=== PATIENT | female | born 1960 | race Caucasian/White ===

== ENCOUNTER 2018-07-31 23:46 | Emergency (ER) | payer MEDICAID ==
[~2018-07-31] VITALS: Ht 157.5 cm; Wt 92.7 kg
[2018-07-31 23:56] VITALS: BP 116/65; Ht 157.5 cm; Wt 92.7 kg
[2018-08-01 00:36] LABS: BASOPHILS 0.3 % (0-2); EOSINOPHILS 0.8 % (0-7); HEMATOCRIT 41.8 % (36.0-48.0); HEMOGLOBIN 14.4 g/dL (12-16); IMMATURE GRANULOCYTES 0.2 % (0-5); LYMPHOCYTES 31.3 % (15-50); MCH 32.8 pg (26.0-34.0); MCHC 34.4 g/dL (31.0-37.0); MCV 95.2 fL (80.0-100.0); MEAN PLATELET VOLUME 9.8 fL (7.4-10.4); MONOCYTES 4.9 % (2-11); NEUTROPHILS 62.5 % (40-80); PLATELET COUNT 270 10x3/uL (130-400); RBC 4.39 10x6/uL (4.00-5.40); RDW 13.3 % (11.5-14.5); WBC 10.8 10x3/uL (4.8-10.8)
[2018-08-01 01:08] LABS: ALBUMIN 3.7 g/dL (3.4-5.0); ANION GAP 14.1 mmol/L (8-16); BILIRUBIN - TOTAL 0.37 mg/dL (0.2-1.3); CALCIUM 9.1 mg/dL (8.5-10.1); CARBON DIOXIDE 29.5 mmol/L (21.0-32.0); PROTEIN - SERUM 7.9 g/dL (6.4-8.2); THYROID STIMULATING HORMONE 7.78 uIU/mL (0.36-3.74)
[2018-08-01 01:09] LABS: POTASSIUM - SERUM 2.6 mmol/L (3.5-5.1)
[2018-08-01 03:17] LABS: APPEARANCE HAZY (CLEAR); COLOR YELLOW (YELLOW)
[2018-08-01 03:18] LABS: BACTERIA MANY /hpf (NONE SEEN); BILIRUBIN NEGATIVE (NEGATIVE); EPITHELIAL CELLS 0-5 /hpf (0-5); GLUCOSE NEGATIVE (NEGATIVE); KETONE NEGATIVE (NEGATIVE); NITRITE POSITIVE (NEGATIVE); PROTEIN NEGATIVE (NEGATIVE); RED CELLS - URINE NONE SEEN /hpf (0-5); UROBILINOGEN NORMAL (NORMAL)
[2018-08-01 03:20] LABS: UDS - AMPHET NEGATIVE QUAL (NEGATIVE); UDS - BARB NEGATIVE QUAL (NEGATIVE); UDS - BENZO POSITIVE QUAL (NEGATIVE); UDS - COCAINE NEGATIVE QUAL (NEGATIVE); UDS - OPIATE POSITIVE QUAL (NEGATIVE); UDS - PCP NEGATIVE QUAL (NEGATIVE); UDS - THC NEGATIVE QUAL (NEGATIVE)
[2018-08-01] MEDS ORDERED: MACROBID100 MG PO (04:06)
== END 2018-08-01 05:00 | disposition home or self-care (01) ==
LOC: D.ER 23:46
PROVIDERS: Emergency Medicine
DX: R45.851 Suicidal ideations (principal); F41.9 Anxiety disorder, unspecified; E87.6 Hypokalemia; N39.0 Urinary tract infection, site not specified; G40.909 Epilepsy, unspecified, not intractable, without status epilepticus; E11.9 Type 2 diabetes mellitus without complications; E03.9 Hypothyroidism, unspecified; J44.9 Chronic obstructive pulmonary disease, unspecified; F17.200 Nicotine dependence, unspecified, uncomplicated

== ENCOUNTER 2019-09-04 21:27 | Inpatient (IN) | payer MEDICAID ==
[~2019-09-04] VITALS: Ht 157.5 cm; Wt 84.6 kg
[~2019-09-04 21:27] MED LIST: MACROBID100 MG PO
[2019-09-04] MEDS ORDERED: BACLOFEN20 M1 PO (21:32)
[2019-09-04] MEDS ORDERED: ZOCOR40 MG PO (21:32)
[2019-09-04] MEDS ORDERED: ZOLOFT100 MG PO (21:33)
[2019-09-04] MEDS ORDERED: GLUCOPHAGE500 MG (21:33)
[2019-09-04] MEDS ORDERED: SYNTHROID100 MCG PO (21:34)
[2019-09-04] MEDS ORDERED: NEURONTIN600 MG PO (21:34)
[2019-09-04] MEDS ORDERED: DIFLUCAN100 MG PO (21:35)
[2019-09-04] MEDS ORDERED: DULERA 100 MCG8.8 GM INH (21:35)
[2019-09-04] MEDS ORDERED: KLONOPIN1 MG PO (21:35)
[2019-09-04 21:51] LABS: BASOPHILS 0.1 % (0-2); EOSINOPHILS 1.1 % (0-7); HEMATOCRIT 43.3 % (36.0-48.0); HEMOGLOBIN 14.3 g/dL (12-16); IMMATURE GRANULOCYTES 0.1 % (0-5); LYMPHOCYTES 39.7 % (15-50); MCH 33.7 pg (26.0-34.0); MCV 102.1 fL (80.0-100.0); MEAN PLATELET VOLUME 9.3 fL (7.4-10.4); RBC 4.24 10x6/uL (4.00-5.40); RDW 14.3 % (11.5-14.5); WBC 7.2 10x3/uL (4.8-10.8)
[2019-09-04 21:55] LABS: PLATELET COUNT 188 10x3/uL (130-400)
[2019-09-04 21:57] LABS: APTT 29.5 SECONDS (22.8-39.4); INR 1.05 (0.85-1.17); PROTIME 13.7 SECONDS (11.6-15.0)
[2019-09-04 21:58] LABS: CALC OSMOLALITY 287 mosm/kg (275-300); CALCIUM 8.6 mg/dL (8.5-10.1); CARBON DIOXIDE 35.2 mmol/L (21.0-32.0); CHLORIDE - SERUM 106 mmol/L (98-107); CREATININE - SERUM 1.2 mg/dL (0.6-1.3); GLUCOSE 86 mg/dL (74-106); POTASSIUM - SERUM 3.2 mmol/L (3.5-5.1); SODIUM 146 mmol/L (136-145); UREA NITROGEN 8 mg/dL (7-18); eGFR NON AFRICAN AMERICAN 49 mL/min (90-120)
[2019-09-04 22:16] LABS: ALBUMIN 3.6 g/dL (3.4-5.0); ALKALINE PHOSPHATASE 127 U/L (30-120); ALT (SGPT) 28 U/L (10-68); CKMB 2.8 U/L (0.0-3.6); CREATINE KINASE 495 UL (21-215); PRO BNP 103 pg/mL (0-125); PROTEIN - SERUM 7.6 g/dL (6.4-8.2); TROPONIN-I < 0.017 ng/mL (0.000-0.060)
[2019-09-04] MEDS ORDERED: HYDROCODON-ACE1 EA10 PO (23:47)
[2019-09-04] MEDS ORDERED: COMBIVENT RESPIM4 GM INH (23:50)
[2019-09-04] MEDS ORDERED: SUDOGEST30 MG PO (23:54)
[2019-09-04] MEDS ORDERED: SINGULAIR10 MG PO (23:59)
[2019-09-05] VITALS (7 sets, daily range): BP systolic 99–124; BP diastolic 45–75; Ht 157.5 cm; Wt 84.6 kg
[2019-09-05] MEDS ORDERED: ANEFRIN15 ML NS (00:03)
--- NOTE | 2019-09-05 02:14 | NUR ---
ADMINISTERED HS MEDICATIONS. DENIES FURTHER NEEDS AT THIS TIME. DROPLET PRECAUTIONS REMAIN IN PLACE. CALL LIGHT CLOSE. CPOC.
[2019-09-05 03:16] LABS: APPEARANCE HAZY (CLEAR); BILIRUBIN NEGATIVE (NEGATIVE); COLOR YELLOW (YELLOW); GLUCOSE NEGATIVE (NEGATIVE); KETONE SMALL mg/dL (NEGATIVE); NITRITE POSITIVE (NEGATIVE); PROTEIN NEGATIVE (NEGATIVE); UROBILINOGEN NORMAL (NORMAL)
[2019-09-05 03:18] LABS: BACTERIA MANY /hpf (NEGATIVE); EPITHELIAL CELLS NSEEN /hpf (0-5); RED CELLS - URINE 0-5 /hpf (0-5); WHITE CELLS - URINE 0-5 /hpf (NEGATIVE)
[2019-09-05 06:06] LABS: BASOPHILS 0.1 % (0-2); EOSINOPHILS 0.9 % (0-7); HEMATOCRIT 35.6 % (36.0-48.0); HEMOGLOBIN 11.6 g/dL (12-16); IMMATURE GRANULOCYTES 0.1 % (0-5); LYMPHOCYTES 40.4 % (15-50); MCH 33.2 pg (26.0-34.0); MCHC 32.6 g/dL (31.0-37.0); MEAN PLATELET VOLUME 9.6 fL (7.4-10.4); MONOCYTES 4.4 % (2-11); NEUTROPHILS 54.1 % (40-80); PLATELET COUNT 180 10x3/uL (130-400); RBC 3.49 10x6/uL (4.00-5.40); RDW 14.5 % (11.5-14.5); WBC 7.8 10x3/uL (4.8-10.8)
[2019-09-05 06:41] LABS: ANION GAP 10.6 mmol/L (8-16); CALCIUM 7.7 mg/dL (8.5-10.1); CARBON DIOXIDE 29.3 mmol/L (21.0-32.0); MAGNESIUM - SERUM 1.9 mg/dL (1.8-2.4); PHOSPHOROUS 3.1 mg/dL (2.5-4.9)
[2019-09-05 06:49] LABS: POTASSIUM - SERUM 2.9 mmol/L (3.5-5.1)
--- NOTE | 2019-09-05 07:53 | NUR ---
PT IS RESTING IN BED WITH EYES OPEN. RESPIRATIONS ARE EVEN AND UNLABORED. PT IS AAO X 4. PT STATES THAT SHE WOULD BATHE IN ALCOHOL AND SOAKS SOCKS IN ALCOHOL AND PUT THEM ON WET DUE TO "I HAVE THIS ISSUE WITH BUGS". DROPLET PRECAUTIONS IN PLACE. PUREWICK IN PLACE. PT REPORTS THAT SHE IS INCONTINENT OF BOWEL AND BLADDER. SCDS ARE ON BLE. O2 VIA NC @ 2L. PT REPORTS THAT SHE DOES WEAR O2 AT HOME. BED IS IN THE LOWEST POSITION. CALL LIGHT AND BEDSIDE TABLE ARE WITHIN REACH. SIDE RAILS X 2. FAMILY AT BEDSIDE. PT DENIES FURTHER NEEDS. WILL CONT TO MONITOR.
--- NOTE | 2019-09-05 08:13 | NUR ---
resived patient from er . Alert and orented able to voice needs and wants to staff. Daughter with her. She staed that she is whellchair bound at home.incont of bowel and blader. uses pullups. Daughter stated that pt. bathes in alchol to the point that she will wet her scoks and ring them out and place them on her feet wet. Bouth she and pt. stated she even put it on her pullup before she puts it on. skin in dry with some scally areas between legs and 4 small open marnie on her buttom right side. no dranage noted. but some yellow covering some of the open areas. pt stated that she put alcohol all over her body. Educated pt that that was not good for her skin and being a diabetic it is very important to keep her skin healthy. She stated that she hadnot had a shower in the shower in a [facility]. Offered a shower , refused she and her daughted, stated that the daughter feliciano do it in am. skin is over all clean looking with skin noted to be like you rubed your hand on it and some skin came off. Stated she did have home health but they don't come any more becouse of her dogs (they have 3 pit bulls). Patient stated that her husben is sick that he has early alzheimers. ua collected via in and out cath per protocol, Respiatory culture collected, Influeza A&B swab collected and sent to lab. Positive forInflueza A, placed on droplet isolatin per protocol. a
--- NOTE | 2019-09-05 13:38 | NUR ---
MED REC COMPLETED. JUVENCIO HERNÁNDEZ PAGED TO NOTIFY PER ORDER.
--- NOTE | 2019-09-05 19:00 | NUR ---
BEDSIDE REPORT RECEIVED. PATIENT RESTING WITH EYES CLOSED. UNLABORED RESPIRATIONS AND O2 @ 2 L. NO DISTRESS NOTED AT THIS TIME. CPOC.
[2019-09-06] VITALS: BP 99/50
--- NOTE | 2019-09-06 03:23 | NUR ---
I have reviewed this patient and I concur with the Shift Assessment completed by the Licensed Practical Nurse today this shift.
[2019-09-06 04:00] VITALS: BP 121/61
[2019-09-06 05:48] LABS: BASOPHILS 0.2 % (0-2); EOSINOPHILS 1.8 % (0-7); HEMATOCRIT 33.4 % (36.0-48.0); HEMOGLOBIN 10.8 g/dL (12-16); IMMATURE GRANULOCYTES 0.3 % (0-5); LYMPHOCYTES 40.1 % (15-50); MCH 33.6 pg (26.0-34.0); MCHC 32.3 g/dL (31.0-37.0); MEAN PLATELET VOLUME 9.2 fL (7.4-10.4); MONOCYTES 4.5 % (2-11); NEUTROPHILS 53.1 % (40-80); PLATELET COUNT 175 10x3/uL (130-400); RBC 3.21 10x6/uL (4.00-5.40); WBC 6.1 10x3/uL (4.8-10.8)
[2019-09-06 06:08] LABS: ANION GAP 9.6 mmol/L (8-16); CALCIUM 7.8 mg/dL (8.5-10.1); CARBON DIOXIDE 28.9 mmol/L (21.0-32.0); MAGNESIUM - SERUM 2.2 mg/dL (1.8-2.4); PHOSPHOROUS 3.6 mg/dL (2.5-4.9); POTASSIUM - SERUM 3.5 mmol/L (3.5-5.1)
--- NOTE | 2019-09-06 07:10 | NUR ---
PT RESTING IN BED. NO SIGNS OF DISTRESS. IV LEFT FORARM PATENT NO REDNESS OR TENDERNESS. ON TELEMETRY 77 SR. FALL PRECAUTIONS IN PLACE. DENIES ANY FURTHER NEED AT THIS TIME. CALL LIGHT IN REACH. BED LOW POSITION. NO FAMILY AT BEDSIDE.
[2019-09-06 08:55] VITALS: BP 119/71
--- NOTE | 2019-09-06 13:52 | NUR ---
I have reviewed this patient and I concur with the Shift Assessment completed by the Licensed Practical Nurse today this shift.
[2019-09-06 14:15] VITALS: BP 106/89
[2019-09-06 19:08] VITALS: BP 137/70
[2019-09-06 20:00] VITALS: BP 136/65
--- NOTE | 2019-09-06 22:10 | NUR ---
PATIENT TEARFUL DURING HS MED PASS. ASKED "IS EVERYONE MAD AT ME?" THIS NURSE ASKED "NO, WHY WOULD YOU THINK THAT?" PATIENT REPLIED "BECAUSE THE ENGLISH DRAWER PUT MY SCD'S ON WRONG." ASSESSED SCD'S AND THEY WERE FITTED AND POSITIONED CORRECTLY. ASKED PATIENT IF SOMEONE HAD SAID SOMETHING TO HER THAT BOTHERED HER SHE REPLIED "NO I JUST HAVE A LOT GOING ON." PATIENT WENT INTO DETAIL ABOUT PROBLEMS AT HOME WITH THAT HAS "BRAIN DISEASE" AND THAT HE DOES NOT HELP. SHE ALSO STATES "HE IS BIPOLAR AND SCHIZO WITH ONE KIDNEY. HE DOESN'T HELP ME AT ALL." SHE STATES SHE HAS CHILDREN AND SISTERS THAT DO NOT HELP. THIS NURSE ASKED IF SHE HAS HOME HEALTH THAT CAN COME HELP HER AT HOME AND PATIENT REPLIED "NO, NO ONE COMES BECAUSE I HAVE THREE INSIDE PITBULLS." THIS NURSE ASKED "WHO TAKES CARE OF THE PITBULLS?" PATIENT REPLIED "I DO BEST I CAN." SPOKE WITH PATIENT ABOUT HER WELL BEING AFTER DISCHARGE. PATIENT ADMANT THAT THE DOGS WILL REMAIN IN HER HOME EVEN IF HER HEALTH COULD POTENTIALLY BE COMPROMISED. PROVIDED SUPPORT AND UNDERSTANDING TO PATIENT. ASKED IF SHE WOULD LIKE A CONSULT WITH CASE MANAGEMENT AND THE PATIENT REPLIED "THERES NO POINT BECAUSE THEY WON'T COME OUT BECAUSE OF THE DOGS." PATIENT IN BETTER SPIRITS PRIOR TO LEAVING THE ROOM. DENIES FURTHER NEEDS AT THIS TIME. CALL LIGHT IN REACH. SCD'S ON. PUREWICK IN PLACE. CPPOC.
--- NOTE | 2019-09-06 23:30 | NUR ---
GAVE PATIENT FLUTTER VALVE ORDERED BY DR. GREWAL. PROVIDED INSTRUCTION AND PATIENT PROVIDED RETURN DEMONSTRATION. DENIES FURTHER NEEDS AT THIS TIME. CALL LIGHT IN REACH. CPOC.
[2019-09-07 00:43] VITALS: BP 115/55
[2019-09-07 04:31] VITALS: BP 141/71
[2019-09-07 04:56] LABS: BASOPHILS 0 % (0-2); EOSINOPHILS 1.8 % (0-7); HEMATOCRIT 35.3 % (36.0-48.0); HEMOGLOBIN 11.3 g/dL (12-16); IMMATURE GRANULOCYTES 0.3 % (0-5); LYMPHOCYTES 36.5 % (15-50); MCV 103.2 fL (80.0-100.0); MEAN PLATELET VOLUME 9.5 fL (7.4-10.4); MONOCYTES 4.4 % (2-11); PLATELET COUNT 196 10x3/uL (130-400); RBC 3.42 10x6/uL (4.00-5.40); RDW 14.7 % (11.5-14.5); WBC 7.3 10x3/uL (4.8-10.8)
[2019-09-07 05:16] LABS: CALC OSMOLALITY 284 mosm/kg (275-300); CALCIUM 8.1 mg/dL (8.5-10.1); CARBON DIOXIDE 29.7 mmol/L (21.0-32.0); CHLORIDE - SERUM 108 mmol/L (98-107); CREATININE - SERUM 0.8 mg/dL (0.6-1.3); GLUCOSE 85 mg/dL (74-106); POTASSIUM - SERUM 3.4 mmol/L (3.5-5.1); SODIUM 144 mmol/L (136-145); eGFR NON AFRICAN AMERICAN 78 mL/min (90-120)
[2019-09-07 05:24] LABS: PHOSPHOROUS 2.4 mg/dL (2.5-4.9); UREA NITROGEN 10 mg/dL (7-18)
--- NOTE | 2019-09-07 05:49 | NUR ---
I have reviewed this patient and I concur with the Shift Assessment completed by the Licensed Practical Nurse today this shift.
[2019-09-07] MEDS ORDERED: GLUCOPHAGE500 MG PO (08:42)
--- NOTE | 2019-09-07 08:45 | NUR ---
PATIENT IN BED WITH IV INTACT. PATIENT HOME MED LIST CORRECTED BY PRESCRIPTION BOTTLES GIVEN BY PATIENT. NOTIFIED HENRY. PATIENT UPSET ABOUT DR. [place] NOT ADDRESSING HER MEDS LIKE THEY ARE USUALLY PRESCRIBED. STATED HE WAS RUDE TO HER. EXPLAINED TO PATIENT THAT MEDS WOULD HAVE TO BE PICKED UP BY FAMILY AND TAKEN HOME OR SENT TO PHARMACY.
--- NOTE | 2019-09-07 09:00 | NUR ---
PATIENT CALLED RN INTO ROOM AND STATED SHE NEEDED SOME COFFEE AT THIS TIME. THEN ASKED IF SHE COULD ASK ME SOMETHING WITHOUT BEING WEIRD, I STATED SURE. PATIENT ASKED ME IF I WOULD LIKE A NEURONTIN OR KLONOPIN AT THIS TIME. TOLD PATIENT NO I WOULD NOT. SPOKE WITH JOHAN BLANK NURSE FIRE ALARM INSTALLER. STATED TO MAKE SURE MEDS ARE TAKEN HOME OR LOCKED IN PHARMACY. VERBALIZED UNDERSTANDING.
[2019-09-07 09:09] VITALS: BP 119/60
--- NOTE | 2019-09-07 11:51 | NUR ---
SPOKE WITH PATIENT'S . ASKING IF SHE IS STILL UPSET. SAID SHE HUNG UP ON HIM TWICE. EXPLAINED SHE WAS UPSET BECAUSE THE DOCOTOR HAS NOT ORDERED HER MEDS THE WAY SHE TAKES THEM AT HOME. EXPLAINED I PUT THEM IN THE MED REC CORRECTLY AND TOLD HENRY ELIZALDE. ALSO UPSET BECAUSE SHE THINKS A NURSE AT THE DESK IS SCOWLING AT HER AND TALKING ABOUT HER. EXPLAINED TO PATIENT THAT THERE IS NO ONE AT THE DESK THAT IS TALKING ABOUT HER AND THAT WE ONLY DO CHARTING AT THE DESK SO THE NURSE IS LOOKING AT HER COMPUTER, NOT IN HER ROOM. STATED HE UNDERSTOOD AND THAT HE THINKS THERE IS SOMETHING GOING ON WITH HER MENTAL STATE, THAT MAYBE ITS BECAUSE SHE ISNT GETTING HER MEDS SHE USUALLY TAKES. EXPLAINED TO WILL CONTINUE TO MONITOR PATIENT. VERBALIZED UNDERSTANDING. PATIENT IN BED WITH EYES CLOSED RESTING QUIETLY AT THIS TIME. CALL LIGHT WITHIN REACH.
[2019-09-07 12:49] VITALS: BP 118/65
[2019-09-07 16:01] VITALS: BP 140/78
--- NOTE | 2019-09-07 16:06 | NUR ---
PATIENT IN BED AND COMFORTABLE. IV INTACT. STATED SHE LOVES EVERYBODY AND THAT SHE DOESNT WANT TO BE MEAN. EXPLAINED TO PATIENT THAT WE UNDERSTAND HER BEING FRUSTRATED ABOUT HER MEDS AND NOT TO BE STRESSED ABOUT IT. VERBALIZED UNDERSTANDING. IV INTACT. CALL LIGHT WITHIN REACH.
--- NOTE | 2019-09-07 19:30 | NUR ---
IN BED ON PHONE WITH REQUESTING TO SPEAK TO FIRE PATROLLER ABOUT GETTING IV OUT AND GOING HOME, STATES SHE DOES NOT FEEL SAFE BECAUSE WE ARE ALL VINDICTIVE AND OUT TO GET HER, STATES SHE MIGHT WELL CALL [facility] BECAUSE SHE CAN. THIS NURSE AND SAFETY TECHNICIAN ARE ATTEMPTING TO CALM AND REASON WITH PT. SHE CONTINUES TO TALK TO BUT IS COMING MORE RATIONAL WITH WORDS. FINALLY AGREES TO STAY FOR A LITTLE WHILE LONGER AND SEE IF WE CAN MAKE HER MORE COMFORTABLE WITH BEING IN HOSPITAL AT THIS TIME. SHE IS TEARFUL AND HYPER VERBAL.
[2019-09-07 21:03] VITALS: BP 130/68
--- NOTE | 2019-09-07 21:51 | NUR ---
REPEATEDLY PULLING OFF TELEMETRY LEADS. FINALLY DCD FROM PATIENT. PULLED IV OUT, WILL RESITE. HAVING AUDITORY HALLUCINATIONS, STATING WE ARE TALKING ABOUT HER AND GRIPING ABOUT HOW EXPENSIVE SHE IS. ATTEMPTED TO REDIRECT, UNABLE TO.
--- NOTE | 2019-09-07 23:50 | NUR ---
IV RESITED TO LEFT HAND, PT WAS VERY ANIMATED DURING PROCESS, ASKED IF I KNEW SHE WAS AN EPILEPTIC AND STARTED APPEARING TO SHAKE UPPER BODY WHILE TALKING TO THIS NURSE, I ASKED HER WHAT WOULD MAKE HER SAY THAT AND SHE STATED THAT PAIN BROUGHT ON HER SEIZURES, I THEN TOLD HER THE IV WAS ALREADY PLACED AND SHE SHOULDN'T HAVE ANY PAIN IN THAT AREA, SHE STOPPED APPEARING TO SHAKE AND SAID THAT SHE HAD NEVER HAD AN IV THERE BEFORE AND WASN'T SURE WHAT TO EXPECT. HER CONVERSATIONS WERE RAPID, EUPHORIC, DISORGANIZED AND RAMBLING. SHE THEN SAID THAT WHILE SHE WAS WATCHING TITANIC EARLIER AND A VOICE TOLD HER SHE SHOULD WATCH IT WITH HER HEADPHONES, I EXPLAINED TO HER THAT AT THIS TIME WE COULD NOT GET HER ANY HEADPHONES THAT ADAPT TO THE TV. SHE THEN BEGAN TALKING ABOUT HER CHILDREN AND THEIR ISSUES, THIS NURSE OFFERED SUPPORT AND EXITED THE ROOM WITH PT WATCHING TV.
--- NOTE | 2019-09-08 03:18 | NUR ---
ALERTED TO PT ROOM, STAFF TIMES TWO IN ROOM. PT HAS PULLED HER IV TUBING INTO TWO PIECES, SHE IS UNSTEADY AND UNABLE TO AMBULATE BY SELF, SHE IS ADAMANT THAT SHE IS GOING TO WALK TO THE WINDOW IN MAIN HALLWAY AND GET FRESH AIR, THIS NURSE ATTEMPTED TO REORIENTATE PT TO CONDITION AND NEED OF WHEEL CHAIR FOR AMBULATION AND BEING ON PRECAUTIONS FOR POSITIVE FLU TEST, SHE SAID SHE WALKS JUST FINE, THIS NURSE DID NOT PRESS ISSUE, PT STATED SHE IS TIRED OF NURSES NOT COMING AND TALKING TO HER AND NOT SAYING HI TO HER WHEN THEY WALK PAST HER ROOM, SHE STATES SHE IS LONELY AND NEEDS US TO BE HER FRIENDS. I ENCOURAGED HER TO CALL HER FAMILY TO COME AND SIT WITH HER, SHE HAD STATED EARLIER IN SHIFT HER WOULD COME, ALL SHE HAD TO DO WAS CALL HIM. SHE THEN STATED THAT THEIR TRUCK WAS BROKE DOWN. THIS PT HAS SEVERELY DISORGANIZED THOUGHT PROCESSES AND UNABLE TO BE REDIRECTED. WILL CONTINUE TO OFFER SUPPORT BEST WAY POSSIBLE.
--- NOTE | 2019-09-08 03:49 | NUR ---
PT CALLED POLICE AND STATED WE WERE HOLDING HER AGAINST HER WILL, POLICE CALLED NURSING STATION AND WE ASSURED POLICE SHE WAS SAFE AND THAT NURSING STAFF WAS IN ROOM AT THAT TIME. CHARGE NURSE, PK ROMAN. NOTIFIED.
--- NOTE | 2019-09-08 04:06 | NUR ---
ALERTED THIS NURSE THAT SHE IS HAVING HER SISTER COME AND PICK HER UP AND TAKE HER TO [facility] TO THE PSYCH CAT. EXPLAINED ALL RISKS VS BENEFITS OF LEAVING AMA, SHE STATED SHE UNDERSTOOD. PK ROMAN NOTIFIED. AMINAH NOTIFIED. WILL WAIT ON SISTER TO ARRIVE.
[2019-09-08 04:15] VITALS: BP 110/65
--- NOTE | 2019-09-08 04:31 | NUR ---
SISTER ARRIVED. AMA PAPERS SIGNED. STAFF ASSISTED TO E.R. EXIT VIA WHEEL CHAIR WITH BELONGINGS. IV REMOVED.
[2019-09-08 10:11] LABS: IMMUNOGLOBULIN A 185 mg/dL (87-352); IMMUNOGLOBULIN G 777 mg/dL (700-1600)
[2019-09-10 10:11] LABS: IGG SUBCLASS 1 QNS mg/dL (()); IGG SUBCLASS 2 QNS mg/dL (()); IGG SUBCLASS 3 QNS mg/dL (()); IGG SUBCLASS 4 QNS mg/dL (()); IGGS - IGG SERUM 779 mg/dL (700-1600)
[2019-09-10 18:08] LABS: IMMUNOGLOBULIN E 75 IU/mL (6-495)
== END 2019-09-08 04:35 | disposition left against medical advice (07) | DRG 193 ==
LOC: D.ER 21:27 → D.MS 22:51
PROVIDERS: Family Medicine; Internal Medicine Pulmonary Disease; ADMIT Family Medicine; ATTEND Family Medicine
DX: J10.1 Influenza due to other identified influenza virus with other respiratory manifestations (principal); J96.21 Acute and chronic respiratory failure with hypoxia; J44.1 Chronic obstructive pulmonary disease with (acute) exacerbation; J44.0 Chronic obstructive pulmonary disease with (acute) lower respiratory infection; F17.203 Nicotine dependence unspecified, with withdrawal; N39.0 Urinary tract infection, site not specified; E87.6 Hypokalemia; E11.65 Type 2 diabetes mellitus with hyperglycemia; D53.9 Nutritional anemia, unspecified; G40.909 Epilepsy, unspecified, not intractable, without status epilepticus; E03.9 Hypothyroidism, unspecified; R01.1 Cardiac murmur, unspecified; M19.90 Unspecified osteoarthritis, unspecified site; K21.9 Gastro-esophageal reflux disease without esophagitis; L30.9 Dermatitis, unspecified; F41.9 Anxiety disorder, unspecified; Z91.19 Patient's noncompliance with other medical treatment and regimen; J20.9 Acute bronchitis, unspecified